=== PATIENT | male | born 1955 | race Caucasian/White ===

== ENCOUNTER 2017-04-22 06:48 | Emergency (ER) | payer SELFPAY ==
[~2017-04-22] VITALS: Ht 185.4 cm; Wt 81.6 kg
--- NOTE | 2017-04-22 07:57 | NUR ---
Patient discharged to home in stable conditon. Written and verbal after care instructions given to patient and family by CARRIE Ortega. Patient verbalizes understanding of instructions.
== END 2017-04-22 07:58 | disposition home or self-care (01) ==
LOC: ER 07:04
DX: J40 Bronchitis, not specified as acute or chronic (principal)
CPT/HCPCS: 71010; 99283; A4663